=== PATIENT | female | born 1945 | race Caucasian/White ===

== ENCOUNTER 2016-11-12 | Inpatient (IN) | payer OTHER, MEDICARE ==
[~2016-11-12] MED LIST: ADULT LOW DOSE81 MG PO; ALDACTONE 25MG25 MG PO; ALPRAZOLAM0.5 MG PO; ATROVENT INH S2.5 ML NEB; BROVANA15 MCG/2 M NEB; BUDESONIDE0.5 MG/2 M INH; CEFUROXIME500 MG PO; COMBIVENT0.074 GM/I INH; ENSURE PLUS FIBE1 EA PO; IPRAT-ALBUT 0.5-3 ML INH; K-DUR TAB 10 M10 MEQ PO; LASIX 40 MG TAB40 MG PO; LIPITOR TAB 2020 MG PO; LOPRESSOR 25 MG25 MG PO; LORCET 5-325 M1 EACH PO; MEDROL DOSEPAK 24 MG PO; MEDROL4 MG PO; MEGACE SUSP40 MG/M1 PO; MIRALAX17 GM PO; MULTIVITAMINS1 EAC1 PO; NITRO-TIME6.5 MG PO; NITROGLYCERIN6.5 M1 PO; NYSTATIN100000 UNI PO; PREDNISONE 10 M10 MG PO; PREDNISONE 20 M20 MG PO; PREDNISONE10 M1 PO; PREDNISONE10 MG PO; PRILOSEC OTC20 MG PO; RESTORIL15 MG PO; SENNA LAXATIVE8.6 MG PO; SPIRIVA HANDIH18 MCG INH; SPIRIVA RESPIMAT4 GM INH; SPIRONOLACTONE25 MG PO; SYMBICORT 16010.2 GM INH; TYLENOL 325MG325 MG PO; VENTOLIN/PROVE0.5 ML NEB; ZANTAC 150 MG150 MG PO; ZANTAC150 MG PO
[2016-11-12 12:27] LABS: HEMOGLOBIN 10.2 gm/dl (12.3-15.3); RED BLOOD COUNT 3.22 M/UL (4.00-5.10); WHITE BLOOD COUNT 23.7 K/UL (4.5-11.0)
[2016-11-12 12:42] LABS: BUN/CREATININE RATIO 28 (0-10)
[2016-11-13 07:06] LABS: HEMOGLOBIN 9.3 gm/dl (12.3-15.3)
[2016-11-13 07:07] LABS: WHITE BLOOD COUNT 11.2 K/UL (4.5-11.0)
[2016-11-13 07:23] LABS: BUN/CREATININE RATIO 30 (0-10)
[2016-11-14 04:52] LABS: BUN/CREATININE RATIO 28 (0-10)
[2016-11-14 04:53] LABS: HEMOGLOBIN 7.1 gm/dl (12.3-15.3); RED BLOOD COUNT 2.3 M/UL (4.00-5.10); WHITE BLOOD COUNT 7.7 K/UL (4.5-11.0)
[2016-11-14 18:45] LABS: HEMOGLOBIN 9.2 gm/dl (12.3-15.3)
[2016-11-15 03:41] LABS: HEMOGLOBIN 9.2 gm/dl (12.3-15.3)
[2016-11-15 03:42] LABS: RED BLOOD COUNT 3.08 M/UL (4.00-5.10); WHITE BLOOD COUNT 10.9 K/UL (4.5-11.0)
[2016-11-15 04:02] LABS: BUN/CREATININE RATIO 35 (0-10)
[2016-11-16 03:41] LABS: HEMOGLOBIN 9.1 gm/dl (12.3-15.3); RED BLOOD COUNT 3.02 M/UL (4.00-5.10)
[2016-11-16 03:58] LABS: BUN/CREATININE RATIO 23 (0-10)
[2016-11-18 03:37] LABS: HEMOGLOBIN 9.3 gm/dl (12.3-15.3); RED BLOOD COUNT 3.03 M/UL (4.00-5.10); WHITE BLOOD COUNT 7.8 K/UL (4.5-11.0)
[2016-11-18 03:57] LABS: BUN/CREATININE RATIO 35 (0-10)
[2016-11-19 05:05] LABS: HEMOGLOBIN 10.1 gm/dl (12.3-15.3); WHITE BLOOD COUNT 6.1 K/UL (4.5-11.0)
[2016-11-19 05:08] LABS: RED BLOOD COUNT 3.34 M/UL (4.00-5.10)
[2016-11-19 05:26] LABS: BUN/CREATININE RATIO 40 (0-10)
== END 2016-11-19 11:15 | DRG 4 ==
PROVIDERS: Emergency Medicine; Surgery; ADMIT Internal Medicine
PROC: 5A1955Z Respiratory Ventilation, Greater than 96 Consecutive Hours (ICD-10-PCS; 2016-11-13)
PROC: 0BH17EZ Insertion of Endotracheal Airway into Trachea, Via Natural or Artificial Opening (ICD-10-PCS; 2016-11-13)
PROC: 30233N1 Transfusion of Nonautologous Red Blood Cells into Peripheral Vein, Percutaneous Approach (ICD-10-PCS; 2016-11-14)
PROC: 0DH63UZ Insertion of Feeding Device into Stomach, Percutaneous Approach (ICD-10-PCS; 2016-11-15)
PROC: 0DJ08ZZ Inspection of Upper Intestinal Tract, Via Natural or Artificial Opening Endoscopic (ICD-10-PCS; 2016-11-15)
PROC: 0B113F4 Bypass Trachea to Cutaneous with Tracheostomy Device, Percutaneous Approach (ICD-10-PCS; principal; 2016-11-15 07:45)
DX: J96.22 Acute and chronic respiratory failure with hypercapnia (principal); G93.40 Encephalopathy, unspecified; E43 Unspecified severe protein-calorie malnutrition; Z68.1 Body mass index [BMI] 19.9 or less, adult; I50.32 Chronic diastolic (congestive) heart failure; Z99.11 Dependence on respirator [ventilator] status; I11.0 Hypertensive heart disease with heart failure; I25.10 Atherosclerotic heart disease of native coronary artery without angina pectoris; J44.9 Chronic obstructive pulmonary disease, unspecified; D64.9 Anemia, unspecified; E87.6 Hypokalemia; E83.51 Hypocalcemia; E78.5 Hyperlipidemia, unspecified; K21.9 Gastro-esophageal reflux disease without esophagitis; I95.9 Hypotension, unspecified; R50.9 Fever, unspecified; D72.829 Elevated white blood cell count, unspecified; T38.0X5A Adverse effect of glucocorticoids and synthetic analogues, initial encounter; G89.29 Other chronic pain; R01.1 Cardiac murmur, unspecified; F41.1 Generalized anxiety disorder; G47.00 Insomnia, unspecified; Z75.1 Person awaiting admission to adequate facility elsewhere; Z95.1 Presence of aortocoronary bypass graft; Z95.5 Presence of coronary angioplasty implant and graft; Z87.891 Personal history of nicotine dependence; Z99.81 Dependence on supplemental oxygen; Z79.51 Long term (current) use of inhaled steroids; Z79.891 Long term (current) use of opiate analgesic; Z79.818 Long term (current) use of other agents affecting estrogen receptors and estrogen levels; Z79.82 Long term (current) use of aspirin; Z79.899 Other long term (current) drug therapy; Z88.3 Allergy status to other anti-infective agents; Z88.2 Allergy status to sulfonamides; Z80.8 Family history of malignant neoplasm of other organs or systems; Z82.49 Family history of ischemic heart disease and other diseases of the circulatory system
CPT/HCPCS: 31500; 36415; 36600; 71010; 80048; 80053; 82040; 82550; 82553; 82803; 83735; 83874; 83880; 84100; 84484; 85014; 85018; 85025; 85027; 86850; 86900; 86901; 86920; 87040; 87070; 87205; 93005; 94002; 94003; 94640; 94660; 94664; 96365; 96372; 96375; 96376; 99285; J1120; J1650; J1956; J2920; J2930; J7040; J7050; J7120; P9016